=== PATIENT | male | born 1995 | race Caucasian/White ===

== ENCOUNTER 2021-09-18 11:40 | Emergency (ER) | payer BC ==
[~2021-09-18] VITALS: Ht 182.9 cm; Wt 81.4 kg
--- NOTE | 2021-09-18 12:09 | REP ---
INDICATION: pain and swelling after injury. COMPARISON: None. TECHNIQUE: Four views FINDINGS: There is a spiral distal fibular fracture. The mortise is intact. IMPRESSION: Distal fibular fracture. <Electronically signed by Rupert Bearden > 09/18/21 [id number]
--- NOTE | 2021-09-18 14:00 | REP ---
INDICATION: proximal to mid fibula ttp, distal fibular fx. COMPARISON: None. TECHNIQUE: AP and lateral FINDINGS: There is a distal fibular spiral fracture seen earlier today on an ankle exam. It is unchanged. There are no additional fractures. IMPRESSION: As above. <Electronically signed by Rupert Bearden > 09/18/21 [id number]
[2021-09-18] MEDS ORDERED: HYDR-3713 PO (14:20)
[2021-09-18] MEDS ORDERED: IBUP80TA PO (14:20)
[2021-09-18 14:28] VITALS: BP 126/71
== END 2021-09-18 14:37 | disposition home or self-care (01) ==
LOC: M ED 11:40
DX: S82.831A Other fracture of upper and lower end of right fibula, initial encounter for closed fracture (principal); S93.401A Sprain of unspecified ligament of right ankle, initial encounter; W19.XXXA Unspecified fall, initial encounter; Y92.9 Unspecified place or not applicable; Y93.22 Activity, ice hockey; Y99.9 Unspecified external cause status

== ENCOUNTER 2021-09-26 13:32 | Day surgery (SDC) | payer BC ==
[~2021-09-26] VITALS: Ht 182.9 cm; Wt 80.6 kg
[~2021-09-26 13:32] MED LIST: HYDR-3713 PO; IBUP80TA PO
[2021-09-26] MEDS ORDERED: ROCURONIUM BROMIDE 50 MG/5 ML VIAL As Ordered ONE ×2 (16:54→18:37)
[2021-09-26] MEDS ORDERED: propofoL 200 MG/20 ML VIAL As Ordered ONE (16:54)
[2021-09-26] MEDS ORDERED: fentaNYL 100 MCG/2 ML INJECTION As Ordered ONE (16:54)
[2021-09-26] MEDS ORDERED: LIDOCAINE 2% 100MG/5ML SDV (FOR ANES.) As Ordered ONE (16:54)
[2021-09-26] MEDS ORDERED: MIDAZOLAM INJ 2MG/2ML VIAL (J2250 PER 1MG) As Ordered ONE (16:55)
[2021-09-26] MEDS ORDERED: BUPIVACAINE/EPIN 0.25% 30 ML VIAL As Ordered ONE (17:38)
[2021-09-26] MEDS ORDERED: TRANEXAMIC ACID 100 MG/ML 10ML VIAL As Ordered ONE (17:39)
[2021-09-26] MEDS ORDERED: BUPIVACAINE LIPOSOME/PF 1.3% 20ML VIAL (13.3MG/ML)(EXPAREL)(C9290 PER1MG) As Ordered ONE (17:43)
[2021-09-26] MEDS ORDERED: ceFAZolin SOD 2 GM in IV 1 EA IV ONE (18:00)
[2021-09-26] MEDS ORDERED: TRANEXAMIC ACID INJection 1,000 MG in D5W 100 ML IV ONE (18:00)
[2021-09-26] MEDS ORDERED: HYDROmorphone HCL 2MG/ML 1ML VIAL As Ordered ONE (18:08)
[2021-09-26] MEDS ORDERED: METOCLOPRAMIDE INJ 10MG/2ML VIAL (J2765 PER 1) As Ordered ONE ×2 (18:08→22:50)
[2021-09-26] MEDS ORDERED: ONDANSETRON 4MG/2ML VIAL As Ordered ONE (18:18)
[2021-09-26] MEDS ORDERED: SUGAMMADEX SODIUM 500 MG/5 ML VIAL (BRIDION) As Ordered ONE (18:18)
[2021-09-26] MEDS ORDERED: ACETAMINOPHEN 1000MG 100ML IV BTL (OFIRMEV) (J0131 PER 10MG) As Ordered ONE (18:44)
[2021-09-26] MEDS ORDERED: VANCOMYCIN 1000MG/20ML VIAL As Ordered ONE (19:37)
[2021-09-26] MEDS ORDERED: LR 1,000 ML IV SCH (20:40)
[2021-09-26] MEDS ORDERED: PERCOCET 5MG/325MG TAB PO PRN (20:40)
[2021-09-26] MEDS ORDERED: METOCLOPRAMIDE INJ 10MG/2ML VIAL (J2765 PER 1) IV PRN (20:40)
[2021-09-26] MEDS ORDERED: ONDANSETRON 4MG/2ML VIAL IV PRN (20:40)
[2021-09-26] MEDS: fentaNYL 100 MCG/2 ML INJECTION IV PRN ×4 (20:57→21:20)
[2021-09-26] MEDS ORDERED: PERCOCET 5MG/325MG TAB PO ONE (21:00)
[2021-09-26] MEDS ORDERED: dexameTHASONE 10MG/1ML VIAL PRES.FREE (J1100 PER 1MG) As Ordered ONE (21:28)
[2021-09-26] MEDS ORDERED: LIDOCAINE 1% MDV 20ML VIAL As Ordered ONE (21:28)
[2021-09-26] MEDS ORDERED: ROPIvacaine 0.5% 30ML INJECTION (J2795 PER 1MG) XX ONE ×2 (21:30→22:00)
[2021-09-26] MEDS ORDERED: dexameTHASONE 10MG/1ML VIAL PRES.FREE (J1100 PER 1MG) XX ONE (22:00)
[2021-09-26] MEDS ORDERED: LIDOCAINE 1% MDV 20ML VIAL XX ONE (22:00)
[2021-09-26 23:00] VITALS: BP 136/65
== END 2021-09-26 23:15 | disposition home or self-care (01) ==
LOC: M SDC 13:32
PROVIDERS: ATTEND Orthopaedic Surgery
DX: S82.891A Other fracture of right lower leg, initial encounter for closed fracture (principal); S93.431A Sprain of tibiofibular ligament of right ankle, initial encounter; Y93.22 Activity, ice hockey; Y92.330 Ice skating rink (indoor) (outdoor) as the place of occurrence of the external cause; Y99.9 Unspecified external cause status; K21.9 Gastro-esophageal reflux disease without esophagitis; X58.XXXA Exposure to other specified factors, initial encounter
CPT/HCPCS: 27792; 27829; 64445; 76000; C1713; C9290; J0131; J0690; J1100; J1170; J2250; J2405; J2765; J2795; J3010; J3370; U0002

== ENCOUNTER 2021-09-28 15:31 | Observation (INO) | payer BC ==
[~2021-09-28] VITALS: Ht 182.9 cm; Wt 80.5 kg
--- OUTSIDE RECORDS SUMMARY | 2021-09-28 15:36 | CCD | Continuity of Care Document ---
Author Author Papo MIJARES MD Organization Unknown Address [address] [place] [address] Phone [phone] Problems Description No Information Available Social History Type Date Description Comments Sex Unknown ETOH Use Occasionally consumes alcohol Tobacco Use Start: Unknown Denies Smoking Recreational Drug Use Denies Drug Use Smoking Status Reviewed: 09/25/21 Denies Smoking Allergies and adverse reactions Description No Known Drug Allergies Medications Active Medications SIG Qnty Indications Ordering Provide r Date Ibuprofen 800mg Tablets Unknown Immunizations Description No Information Available Vital Signs Date Vital Result Comment 09/25/2021 1:44pm Body Temperature 97.0 F Results Description No Information Available Procedures Description No Information Available Medical Devices Description No Information Available Encounters Description No Information Available Assessments Date Code Description Provider 09/25/2021 S82.401A Unspecified fracture of shaft of right fibula, initial encounter for closed fracture Mervin Mijares MD Plan of Treatment Future Appointment(s):* 09/26/2021 4:30 pm - Gian Sears MD at [facility] 09/25/2021 - Mervin Mijares MD* S82.401A Unspecified fracture of shaft of right fibula, initial encounter for closed fracture Functional Status Description No Information Available Mental Status Description No Information Available Referrals Description No Information Available
--- OUTSIDE RECORDS SUMMARY | 2021-09-28 15:36 | CCD ---
Author Author [facility] Organization [facility] Address Unknown Phone Unavailable Care Team Providers Care Airport Engineer Name Role Phone Cliff Persaud MD Unavailable Unavailable Cliff Persaud MD Unavailable Unavailable Cliff Persaud MD Unavailable Unavailable Cliff Persaud MD Unavailable Unavailable Cliff Persaud MD Unavailable Unavailable Hung, Cliff Jeffries MD Unavailable Unavailable Hung, Cliff Jeffries MD Unavailable Unavailable Luz Elena MORGAN MD Unavailable Unavailable Re-disclosure Warning The records that you are about to access may contain information from federally-assisted alcohol or drug abuse programs. If such information is present, then the following federally mandated warning applies: This information has been disclosed to you from records protected by federal confidentiality rules (42 CFR part 2). The federal rules prohibit you from making any further disclosure of this information unless further disclosure is expressly permitted by the written consent of the person to whom it pertains or as otherwise permitted by 42 CFR part 2. A general authorization for the release of medical or other information is NOT sufficient for this purpose. The Federal rules restrict any use of the information to criminally investigate or prosecute any alcohol or drug abuse patient.The records that you are about to access may contain highly sensitive health information, the redisclosure of which is protected by Article 27-F of the [facility] Public Health law. If you continue you may have access to information: Regarding HIV / AIDS; Provided by facilities licensed or operated by the [facility] Office of Mental Health; or Provided by the [facility] Office for People With Developmental Disabilities. If such information is present, then the following [facility] mandated warning applies: This information has been disclosed to you from confidential records which are protected by state law. State law prohibits you from making any further disclosure of this information without the specific written consent of the person to whom it pertains, or as otherwise permitted by law. Any unauthorized further disclosure in violation of state law may result in a fine or snf sentence or both. A general authorization for the release of medical or other information is NOT sufficient authorization for further disc losure. Encounters Encounter Providers Location Date Indications Data Source(s ) Outpatient Attender: Mervin Lopez/González/Albert/Edward ndl 09/25/2021 12:30:00 PM EST [facility] ([facility], ) Outpatient Attender: LISA MORGAN MD Physical Therapy 09/19/2021 01 :30:00 PM EST [facility] ([facility]) Medications No Information Insurance Providers Payer name Policy type / Coverage type Policy ID Covered green party ID Covered green party's relationship to underwood Policy Underwood Plan Information [facility] 121/621 [id number] MO2 [id number] Problems, Conditions, and Diagnoses No Information Surgeries/Procedures Procedure Description Date Indications Data Source(s) OFFICE OUTPATIENT NEW 45 MINUTES 09/25/2021 12:00:00 A M EST [facility] ([facility], ) RADEX ANKLE COMPLETE MINIMUM 3 VIEWS 09/19/2021 12:00: 00 AM EST [facility] ([facility]) OFFICE OUTPATIENT NEW 45 MINUTES 09/19/2021 12:00:00 A M EST [facility] ([facility]) Results No Information Social History No Information Vital Signs ID Date Data Source UNK Name Value Range Interpretation Code Description Data Source(s) Body temperature 97.0 [degF] 97.0 [degF] [facility] ([facility], )
--- OUTSIDE RECORDS SUMMARY | 2021-09-28 15:36 | CCD | Continuity of Care Document ---
Author Author Papo MIJARES MD Organization Unknown Address [address] [place] [address] Phone [phone] Problems Description No Information Available Social History [...] F Results Description No Information Available Procedures Date Code Description Status 09/25/2021 60191 Office/Outpatient New Moderate M DM 45-59 Minutes Completed Medical Devices Description No Information Available Encounters Type Date Location Provider Dx Diagnosis Office Visit 09/25/2021 1:30p [facility] Luz Elena Rock S82.401A Unsp fracture of shaft of right fibula, init for clos fx Assessments Date Code Description Provider 09/25/2021 S82.401A Unspecified fracture of shaft of right fibula, initial encounter for closed fracture Mervin Mijares MD Plan of Treatment Future Appointment(s):* 11/06/2021 1:00 pm - Gian Sears MD at [facility] * 10/10/2021 2:30 pm - Talib Peter MD at [facility] 09/25/2021 - Mervin Mijares MD* S82.401A Unspecified fracture of shaft of right fibula, initial encounter for closed fracture Functional Status Description No Information Available Mental Status Description No Information Available Referrals Description No Information Available
--- OUTSIDE RECORDS SUMMARY | 2021-09-28 15:36 | CCD | Continuity of Care Document ---
Author Author Papo MIJARES MD Organization Unknown Address [address] [place] [address] Phone [phone] Problems Description No Information Available Social History [...] 4:30 pm - Gian Sears MD at [facility] 09/25/2021 - Mervin Mijares MD* S82.401A Unspecified fracture of shaft of right fibula, initial encounter for closed fracture Functional Status Description No Information Available Mental Status Description No Information Available Referrals Description No Information Available
[2021-09-28] MEDS ORDERED: OXYC1TAB23 PO (15:38)
[2021-09-28] MEDS ORDERED: ASPI81CH33 PO (15:38)
[2021-09-28] MEDS ORDERED: ONDA-83 PO (15:38)
[2021-09-28] MEDS ORDERED: IBUP-1022 PO (15:38)
[2021-09-28] MEDS: ACETAMINOPHEN 500 MG TAB PO SCH ×2 (18:00→23:48)
[2021-09-28] MEDS ORDERED: oxyCODONE 5MG TAB PO PRN (18:20)
--- OUTSIDE RECORDS SUMMARY | 2021-09-28 18:41 | CCD ---
Author Author [facility] Organization [facility] Address Unknown Phone Unavailable Care Team Providers Care Delicatessen Slicer Name Role Phone Cliff Persaud MD Unavailable [...] is protected by Article 27-F of the [facility] Public Health law. If you continue you may have access to information: Regarding HIV / AIDS; Provided by facilities licensed or operated by the [facility] Office of Mental Health; or Provided by the [facility] Office for People With Developmental Disabilities. If such information is present, then the following [facility] mandated warning applies: This information has [...] law may result in a fine or care home sentence or both. A general authorization for the release of medical or other information is NOT sufficient authorization for further disc losure. Encounters Encounter Providers Location Date Indications Data Source(s ) Outpatient Attender: Mervin Lopez/González/Albert/Edward ndl 09/25/2021 12:30:00 PM EST [facility] ([facility], ) Outpatient Attender: LISA MORGAN MD Physical Therapy 09/19/2021 01 :30:00 PM EST [facility] ([facility]) Medications No Information Insurance Providers Payer name Policy type / Coverage type Policy ID Covered republican ID Covered republican's relationship to underwood Policy Underwood Plan Information [facility] 121/621 [id number] MO2 [id number] Problems, Conditions, and Diagnoses No Information Surgeries/Procedures Procedure Description Date Indications Data Source(s) OFFICE OUTPATIENT NEW 45 MINUTES 09/25/2021 12:00:00 A M EST [facility] ([facility], ) RADEX ANKLE COMPLETE MINIMUM 3 VIEWS 09/19/2021 12:00: 00 AM EST [facility] ([facility]) OFFICE OUTPATIENT NEW 45 MINUTES 09/19/2021 12:00:00 A M EST [facility] ([facility]) Results No Information Social History No Information Vital Signs ID Date Data Source UNK Name Value Range Interpretation Code Description Data Source(s) Body temperature 97.0 [degF] 97.0 [degF] [facility] ([facility], )
--- OUTSIDE RECORDS SUMMARY | 2021-09-28 18:43 | CCD ---
Author Author [facility] Organization [facility] Address Unknown Phone Unavailable Care Team Providers Care Welding Machine Operator Electro Gas Name Role Phone Cliff Persaud MD Unavailable [...] is protected by Article 27-F of the [facility] Public Health law. If you continue you may have access to information: Regarding HIV / AIDS; Provided by facilities licensed or operated by the [facility] Office of Mental Health; or Provided by the [facility] Office for People With Developmental Disabilities. If such information is present, then the following [facility] mandated warning applies: This information [...] law may result in a fine or residential sentence or both. A general authorization for the release of medical or other information is NOT sufficient authorization for further disc losure. Encounters Encounter Providers Location Date Indications Data Source(s ) Outpatient Attender: Mervin Lopez/González/Albert/Edward ndl 09/25/2021 12:30:00 PM EST [facility], ) Outpatient Attender: LISA MORGAN MD Physical Therapy 09/19/2021 01 :30:00 PM EST [facility] ([facility]) Medications No Information Insurance Providers Payer name Policy type / Coverage type Policy ID Covered libertarian ID Covered libertarian's relationship to underwood Policy Underwood Plan Information [facility] 121/621 [id number] MO2 [id number] Problems, Conditions, and Diagnoses No Information Surgeries/Procedures Procedure Description Date Indications Data Source(s) OFFICE OUTPATIENT NEW 45 MINUTES 09/25/2021 12:00:00 A M EST [facility] ([facility], ) RADEX ANKLE COMPLETE MINIMUM 3 VIEWS 09/19/2021 12:00: 00 AM EST [facility] ([facility]) OFFICE OUTPATIENT NEW 45 MINUTES 09/19/2021 12:00:00 A M EST [facility] ([facility]) Results No Information Social History No Information Vital Signs ID Date Data Source UNK Name Value Range Interpretation Code Description Data Source(s) Body temperature 97.0 [degF] 97.0 [degF] [facility] ([facility], )
--- NOTE | 2021-09-28 19:21 | HPEPDOC ---
[facility] Medical History & Physical Date of Admission Sep 28, 2021 Date of Service: Sep 28, 2021 History and Physical CHIEF COMPLAINT: " My ankle hurts" HISTORY OF PRESENT ILLNESS: 26-year-old male with no reported past medical history presented to emergency department with intractable ankle pain. Patient reports while playing hockey had sustained an ankle fracture and underwent surgery on 09/26/2021. He had a right ankle open reduction internal fixation and syndesmotic fixation. He reports taking his oxycodone as prescribed, but patient could not tolerate the pain therefore returned to the emergency room department. In the emergency room department, he was evaluated by Dr. Persaud for compartment syndrome, which was negative. He is being admitted for pain control under observations. PAST MEDICAL HISTORY: None PAST SURGICAL HISTORY: Arm surgery, unspecified Ankle surgery SOCIAL HISTORY: Denies smoking and drinking. He does use cannabis recreationally. FAMILY HISTORY: Noncontributory ALLERGIES: Please see below. REVIEW OF SYSTEMS: 10 point review of system was negative except for what is noted in the HPI HOME MEDICATIONS: Please see below. PHYSICAL EXAMINATION: VITAL SIGNS: Please see below General: Lying in bed, no acute distress Head/Neck/Throat: Trachea midline, mucous membranes moist Eyes: Sclera anicteric, PERRLA Thorax: Normal respiratory effort on room air, lungs clear to auscultation bilaterally, no wheezes/rales/rhonchi Cardiovascular: Normal rate, regular rhythm, normal S1, S2; no S3, S4, rubs/gallops/murmurs Abdomen: Bowel sounds present, soft/nontender/nondistended Genitourinary: No CVA tenderness, no Benjmain in place Musculoskeletal: Right ankle was in boot and wrapped no soaking was appreciated. Skin: Warm, dry Neurologic: AAOx3, speech fluent and goal-directed, no focal deficits, grossly intact LABORATORY DATA: See below. IMAGING: No imaging to review at this time MICROBIOLOGY: Please see below. ASSESSMENT/PLAN: 26-year-old male status post ORIF of the right ankle admitted for observation and pain control. #Right ankle fracture -POD#2 of right ankle open reduction internal fixation and syndesmotic fixation. -Symptomatic management with pain control. -Patient is going to be evaluated by the orthopedic team, they are aware. #Leukocytosis -Suspect that this is reactive secondary to her patient surgery. He is afebrile. Follow-up antibiotics. #DVT prophylaxis -Lovenox Vital Signs Vital Signs Date Time Temp Pulse Resp B/P (MAP) Pulse Ox O2 Delivery O2 Flow Rate FiO2 09/28/21 15:31 98.6 63 18 146/89 (108) 99 Room Air Home Medications Scheduled Aspirin (Aspirin) 81 Mg Tab.chew, 81 MG PO DAILY Docusate Sodium (Dok) 100 Mg Tablet, 100 MG PO DAILY Oxycodone HCl (Oxycontin) 10 Mg Tab.er.12h, 1 TAB PO DAILY for pain Scheduled PRN Ibuprofen (Ibuprofen) 600 Mg Tablet, 600 MG PO TID PRN for moderate pain with food Ondansetron HCl (Ondansetron HCl) 4 Mg Tablet, 4 MG PO Q4HP PRN for nausea/vomiting Oxycodone HCl/Acetaminophen (Oxycodone-Acetaminophen 5-325) 1 Each Tablet, 1 TAB PO TIDP PRN for severe pain Allergies Coded Allergies: No Known Allergies (Unverified , 09/18/21) A-FIB/CHADSVASC A-FIB History Current/History of A-Fib/PAF?: No OBED WARD M.D. Sep 28, 2021 18:22
[2021-09-28] MEDS: oxyCODONE 10 MG CR TAB PO SCH (19:22)
[2021-09-28] MEDS ORDERED: DOK100TA2 PO (19:23)
[2021-09-28 19:25] LABS: HEMATOCRIT 44.4 % (42.0-52.0); HEMOGLOBIN 15.3 g/dl (13.5-17.5); MEAN CORPUSCULAR HEMOGLOBIN 30.2 pg (27.0-33.0); MEAN CORPUSCULAR HGB CONC 34.5 g/dl (32.0-36.5); MEAN CORPUSCULAR VOLUME 87.6 fl (80.0-96.0); PLATELET COUNT, AUTOMATED 243 10^3/uL (150-450); RED BLOOD COUNT 5.07 10^6/uL (4.30-6.10); WHITE BLOOD COUNT 13.4 10^3/uL (4.0-10.0)
[2021-09-28] MEDS ORDERED: HOME MED LIST COMPLETE! XX SCH (19:25)
[2021-09-28] MEDS ORDERED: ONDANSETRON 4 MG TAB PO PRN (19:30)
--- NOTE | 2021-09-28 19:35 | CR ---
CONSULTATION DATE: 09/28/2021 REASON FOR CONSULTATION: Right ankle pain, status post right ankle open reduction and internal fixation. CHIEF COMPLAINT: Right ankle pain, status post right ankle open reduction and internal fixation. HISTORY OF PRESENT ILLNESS: The patient is a 26-year-old male who is now postop day two status post a right distal fibula open reduction and internal fixation syndesmosis stabilization by Dr. Sears. The patient had surgery two days ago and then had a block and then went home the same evening. He had good pain control for about 24 hours and then last night had more pain than he previously had. He said at this point it has been about 10/10 and he has been taking his postop medications per instructions that Dr. Sears gave him. He says he has been elevating his leg as well. He has not undone the the kurt wrap. Other than that, he has pain at rest. The pain has not changed with moving his toes or elevating it or keeping it below the level of his heart. He has no other complaints besides his ankle pain. When he points to the pain, the pain is directly over the incision site, nowhere else on the leg or the foot. PAST MEDICAL HISTORY: Noncontributory. PAST SURGICAL HISTORY: As above in HPI. MEDICATIONS: Postop pain control medications. ALLERGIES: None. REVIEW OF SYSTEMS: Negative except what is in the HPI. SOCIAL HISTORY: The patient is a professional card player here in town. There is a report that he occasionally smoke marijuana. No other illicit drug use or recent alcohol. PHYSICAL EXAMINATION: GENERAL: Well-developed, well-nourished, appears to be in pain. NEURO: Alert and oriented x4. PSYCH: Normal mood and affect. CARDIAC: Regular rate and rhythm. RESPIRATORY: Nonlabored breathing. Equal chest rise and fall. ABDOMEN: Nontender, nondistended. SKIN: Intact, no ecchymosis, swelling or breaks in the skin. MUSCULOSKELETAL: Focused exam of right lower extremity demonstrates minimal swelling to the right lower extremity about the surgical site. The dressing is clean, dry and intact with no strike through. The patient has no tenderness to palpation about the calf. He has tenderness directly over the incision site and this is where he elicits pain. He has no increased pain with passive motion of the toes. Compartments are soft and compressible. 2+ PT and DP pulse and brisk capillary refill in all digits and is equal to the contralateral side. He has sensation to light touch in the sural, saphenous, DP and SP and tibial nerves. Motor intact in the EHL, FHL, gastroc-soleus complex, tibialis anterior. IMAGING: No imaging was performed. ASSESSMENT: This is a 26-year-old male status post right ankle open reduction and internal fixation by Dr. Sears with postoperative pain. Currently no concern for compartment syndrome given his soft, compressible compartments with no increased pain with passive stretching of the extensor and flexor tendons with passive toe movement and passive ankle movement. CURRENT RECOMMENDATIONS: Include aggressive elevation. I placed a significant number of blankets under his leg to get him in better elevated position. I generally wrapped his foot and ankle back with Kurt wrap but the plan not too tight. Plan for pain control and admit by hospitalist this evening per Dr. Sears's request. We will keep a close eye on him to continue to monitor for any signs of compartment syndrome. We will check on him again tomorrow at some point or sooner if requested to do so. Pain control per hospitalist, nonweightbearing, right lower extremity, aggressive elevation above the level of the heart at all times. DVT chemoprophylaxis per hospitalist. MING
--- NOTE | 2021-09-28 19:58 | REP ---
INDICATION: right ankle x-ray s/p surgey. Okay to take off boot for xray COMPARISON: None. TECHNIQUE: AP, lateral, bilateral oblique views. FINDINGS: Examination demonstrates the patient to be status post satisfactory open reduction and fixation for distal fibular fracture. Minimal postsurgical changes are suggested. Ankle mortise appears intact. IMPRESSION: Status post satisfactory open reduction and fixation for distal fibular fracture. <Electronically signed by Nahid Mccormick > 09/28/211953
[2021-09-28 20:06] LABS: ALBUMIN 4.1 GM/DL (3.2-5.2); ALT/SGPT 42 U/L (12-78); BILIRUBIN,TOTAL 1.2 MG/DL (0.2-1.0); BLOOD UREA NITROGEN 18 MG/DL (7-18); CARBON DIOXIDE LEVEL 24 MEQ/L (21-32); CHLORIDE LEVEL 108 MEQ/L (98-107); CREATININE FOR GFR 1.14 MG/DL (0.70-1.30); GLOMERULAR FILTRATION RATE > 60.0 (>60); GLUCOSE, FASTING 92 MG/DL (70-100); MAGNESIUM LEVEL 2.4 MG/DL (1.8-2.4); PHOSPHORUS LEVEL 1.5 MG/DL (2.5-4.9); POTASSIUM SERUM 3.6 MEQ/L (3.5-5.1); SODIUM LEVEL 140 MEQ/L (136-145); TOTAL PROTEIN 7.1 GM/DL (6.4-8.2)
[2021-09-28 20:19] LABS: RSV AMPLIFICATION NEGATIVE (NEGATIVE)
[2021-09-28 21:15] VITALS: BP 166/101
[2021-09-28] MEDS ORDERED: KETOROLAC 30 MG/ML 1ML VIAL IV PRN (22:45)
[2021-09-28] MEDS ORDERED: carisoprodoL 350 MG TAB PO PRN (22:45)
[2021-09-28] MEDS ORDERED: MORPHINE 2 MG/ML 1ML VIAL (J2270) IV ONE (22:45)
[2021-09-29] MEDS: oxyCODONE 5MG TAB PO PRN ×2 (03:21→12:04)
[2021-09-29 06:00] VITALS: BP 121/69
[2021-09-29] MEDS: ACETAMINOPHEN 500 MG TAB PO SCH ×2 (06:07→12:00)
[2021-09-29] MEDS: oxyCODONE 10 MG CR TAB PO SCH (08:46)
[2021-09-29] MEDS ORDERED: oxyCODONE 10 MG CR TAB PO SCH (09:00)
[2021-09-29] MEDS ORDERED: ENOXAPARIN 40MG/0.4ML SYRINGE (J1650 PER 10MG) SC SCH (09:00)
[2021-09-29] MEDS ORDERED: OXYC-141 PO ×2 (11:18→11:19)
--- NOTE | 2021-09-29 11:27 | DS.PDOC ---
Discharge Summary General Date of Admission Sep 28, 2021 at 18:13 Date of Discharge 09/29/21 Discharge Summary DISCHARGE DIAGNOSES: 1. Right ankle fracture COMPLICATIONS/CHIEF COMPLAINT: Closed Fracture Of Rt Distal Fibula. HOSPITAL COURSE: 26-year-old male with no reported past medical history presented to emergency department with intractable ankle pain. Patient reports while playing hockey had sustained an ankle fracture and underwent surgery on 09/26/2021. He had a right ankle open reduction internal fixation and syndesmotic fixation. He reports taking his oxycodone as prescribed, but patient could not tolerate the pain therefore returned to the emergency room department and was a direct a dmission by orthopedics team. He was evaluated by Dr. Persaud, and there was no suspicion for compartment syndrome. Repeat x-ray of the ankle showed satisfactory ORIF. At the time of discharge, his pain was better controlled. He will be discharged home on OxyContin in addition to his oxycodone and was explained the risks/benefits of these medications. He was cleared by the orthopedic team and to maintain weightbearing status that was discussed with him. He will be following up with orthopedic team to possibly schedule physical therapy as outpatient. DISCHARGE MEDICATIONS: Please see below. ALLERGIES: Please see below. PHYSICAL EXAMINATION ON DISCHARGE: VITAL SIGNS: Please see below. General: Lying in bed, no acute distress Head/Neck/Throat: Trachea midline, mucous membranes moist Eyes: Sclera anicteric, no erythema or discharge appreciated bilaterally Thorax: Normal respiratory effort on room air, lungs clear to auscultation bilaterally, no wheezes/rales/rhonchi Cardiovascular: Normal rate, regular rhythm, normal S1, S2; no S3, S4, rubs/gallops/murmurs Abdomen: Bowel sounds present, soft/nontender/nondistended Genitourinary: No CVA tenderness, no Benjamin in place Musculoskeletal: Right ankle was in boot and wrapped no soaking was appreciated. Skin: Warm, dry Neurologic: AAOx3, speech fluent and goal-directed, no focal deficits, grossly intact LABORATORY DATA: Please see below. IMAGING: Ankle, complete RIGHT FINDINGS: Examination demonstrates the patient to be status post satisfactory open reduction and fixation for distal fibular fracture. Minimal postsurgical changes are suggested. Ankle mortise appears intact. IMPRESSION: Status post satisfactory open reduction and fixation for distal fibular fracture. PROGNOSIS: Good ACTIVITY: As per orthopedic team DIET: Regular DISCHARGE INSTRUCTIONS: 1 follow-up with orthopedics team in 3 to 5 days DISCHARGE CONDITION: Stable TIME SPENT ON DISCHARGE: 25 minutes. Vital Signs/I&Os Vital Signs Date Time Temp Pulse Resp B/P (MAP) Pulse Ox O2 Delivery O2 Flow Rate FiO2 09/29/21 08:46 16 09/29/21 06:00 98.9 95 121/69 (86) 100 Room Air I&O- Last 24 Hours up to 6 AM 09/29/21 06:00 Intake Total 360 ml Output Total 0 ml Balance 360 ml Laboratory Data Labs 24H Laboratory Tests 2 09/28/21 18:22: Nucleated Red Blood Cells % (auto) 0.0, Anion Gap 8, Glomerular Filtration Rate > 60.0, Calcium Level 10.0, Phosphorus Level 1.5L, Magnesium Level 2.4, Total Bilirubin 1.2H, Aspartate Amino Transf (AST/SGOT) 126H, Alanine Aminotransferase (ALT/SGPT) 42, Alkaline Phosphatase 81, Total Protein 7.1, Albumin 4.1, Albumin/Globulin Ratio 1.4 09/28/21 18:45: 09/28/21 19:30: Coronavirus (COVID-19)(PCR) NEGATIVE, Influenza Type A (RT-PCR) NEGATIVE, Influenza Type B (RT-PCR) NEGATIVE, Respiratory Syncytial Virus (PCR) NEGATIVE CBC/BMP Laboratory Tests 09/28/21 18:22 Discharge Medications Scheduled Aspirin (Aspirin) 81 Mg Tab.chew, 81 MG PO DAILY, (Reported) Docusate Sodium (Dok) 100 Mg Tablet, 100 MG PO DAILY, (Reported) Oxycodone HCl (Oxycontin) 10 Mg Tab.er.12h, 1 TAB PO DAILY for pain Scheduled PRN Ibuprofen (Ibuprofen) 600 Mg Tablet, 600 MG PO TID PRN for moderate pain, (Reported) with food Ondansetron HCl (Ondansetron HCl) 4 Mg Tablet, 4 MG PO Q4HP PRN for nausea/vomiting, (Reported) Oxycodone HCl/Acetaminophen (Oxycodone-Acetaminophen 5-325) 1 Each Tablet, 1 TAB PO TIDP PRN for severe pain, (Reported) Allergies Coded Allergies: No Known Allergies (Unverified , 09/18/21) OBED WARD M.D. Sep 29, 2021 11:27
== END 2021-09-29 12:00 | disposition home health service (06) ==
LOC: M ED 15:31 → M ED INP 18:13 → ENRESERV 20:24 → M MS5PR 21:15
PROVIDERS: ADMIT Internal Medicine; ATTEND Internal Medicine
DX: G89.18 Other acute postprocedural pain (principal); Z48.89 Encounter for other specified surgical aftercare; S89.20 Unspecified physeal fracture of upper end of fibula; D72.829 Elevated white blood cell count, unspecified; Z79.899 Other long term (current) drug therapy; Z79.82 Long term (current) use of aspirin
CPT/HCPCS: 73610; 80053; 80307; 83735; 84100; 85027; 87631; 96372; 96374; 96375; 97161; 99281; J1650; J1885; J2270

== ENCOUNTER → 2021-10-10 | Outpatient (CLI) | payer BC ==
[~2021-10-10] MED LIST changes: +ASPI81CH33 PO; +DOK100TA2 PO; +IBUP-1022 PO; +ONDA-83 PO; +OXYC-141 PO; +OXYC1TAB23 PO
--- NOTE | 2021-10-13 10:10 | REP ---
INDICATION: RT ANKLE SURGICAL AFTERCARE. COMPARISON: 09/28/2021 TECHNIQUE: AP, lateral, oblique views of the right ankle FINDINGS: The patient is again noted to be status post satisfactory open reduction and fixation for distal fibular fracture. No new acute process. IMPRESSION: Stable satisfactory fixation. <Electronically signed by Nahid Mccormick > 10/13/21 1004
== END ==
LOC: M SOG 14:47
PROVIDERS: ATTEND Orthopaedic Surgery Sports Medicine
DX: Z48.89 Encounter for other specified surgical aftercare (principal)

== ENCOUNTER → 2021-11-18 | Outpatient (CLI) | payer BC | LOC: M SOG 08:03 | PROVIDERS: ATTEND Orthopaedic Surgery | DX: S82.831D Other fracture of upper and lower end of right fibula, subsequent encounter for closed fracture with routine healing (principal); X58.XXXD Exposure to other specified factors, subsequent encounter ==

== ENCOUNTER → 2021-11-25 | Outpatient (CLI) | payer BC | LOC: M SOG 10:08 | PROVIDERS: ATTEND Orthopaedic Surgery | DX: S82.831D Other fracture of upper and lower end of right fibula, subsequent encounter for closed fracture with routine healing (principal); X58.XXXD Exposure to other specified factors, subsequent encounter; Y92.89 Other specified places as the place of occurrence of the external cause ==

== ENCOUNTER 2021-11-29 14:16 | Emergency (ER) | payer BC ==
[~2021-11-29] VITALS: Ht 182.9 cm; Wt 79.5 kg
[2021-11-29 14:16] VITALS: BP 137/81
[2021-11-29] MEDS ORDERED: AMOX500T2 (14:35)
[2021-11-29 15:57] LABS: BASO % 0.4 % (0.0-1.0); EOS # 0.1 10^3/uL (0.0-0.5); EOS % 1.9 % (0.0-3.0); HEMATOCRIT 42.8 % (42.0-52.0); HEMOGLOBIN 14.4 g/dl (13.5-17.5); LYMPH # 2.1 10^3/uL (1.5-5.0); MEAN CORPUSCULAR HEMOGLOBIN 29.5 pg (27.0-33.0); MEAN CORPUSCULAR HGB CONC 33.6 g/dl (32.0-36.5); MEAN CORPUSCULAR VOLUME 87.7 fl (80.0-96.0); MONO # 0.5 10^3/uL (0.0-0.8); MONO % 7.4 % (2.0-8.0); NEUTROPHILS # 4.2 10^3/uL (1.5-8.5); PLATELET COUNT, AUTOMATED 303 10^3/uL (150-450); RED BLOOD COUNT 4.88 10^6/uL (4.30-6.10); WHITE BLOOD COUNT 6.9 10^3/uL (4.0-10.0)
[2021-11-29 16:15] LABS: ERYTHROCYTE SEDIMENTATION RATE 13 mm/hr (0-15)
[2021-11-29 16:29] LABS: BLOOD UREA NITROGEN 16 MG/DL (7-18); C REACTIVE PROTEIN QUANTITATIV 0.93 MG/DL (0.00-0.30); CARBON DIOXIDE LEVEL 31 MEQ/L (21-32); CHLORIDE LEVEL 105 MEQ/L (98-107); CREATININE FOR GFR 0.78 MG/DL (0.70-1.30); GLOMERULAR FILTRATION RATE > 60.0 (>60); GLUCOSE, FASTING 100 MG/DL (70-100); POTASSIUM SERUM 4.1 MEQ/L (3.5-5.1); SODIUM LEVEL 141 MEQ/L (136-145)
[2021-11-29] MEDS ORDERED: ceFAZolin SOD 2 GM in IV 1 EA IV ONE (17:00)
== END 2021-11-29 17:54 | disposition home or self-care (01) ==
LOC: M ED 14:16
DX: R22.41 Localized swelling, mass and lump, right lower limb (principal); T81.30XA Disruption of wound, unspecified, initial encounter; S82.441D Displaced spiral fracture of shaft of right fibula, subsequent encounter for closed fracture with routine healing; X58.XXXD Exposure to other specified factors, subsequent encounter; Y92.89 Other specified places as the place of occurrence of the external cause
CPT/HCPCS: 80048; 85025; 85652; 86140; 87040; 87070; 87075; 96365; 99283; J0690